=== PATIENT | male | born 1945 | race Caucasian/White ===

== ENCOUNTER 2016-09-21 06:36 | Inpatient (IN) | payer OTHER ==
[2016-09-20 13:19] LABS: BASO% 0.4 % (0.0-0.8); EOS# 0.18 X1000 (0.0-0.7); EOS% 3.2 % (0.0-10.0); HEMATOCRIT 38.9 % (42.0-52.0); LYMPH# 1.97 X1000 (1.2-3.4); LYMPH% 34.9 % (20.5-51.1); MANUAL DIFF NEEDED? NO; MCH 31.9 PG (27-31); MCHC 33.4 g/dL (33-37); MCV 95.3 FL (81-99); MONO# 0.39 X1000 (0.11-0.59); MONO% 6.9 % (1.7-9.3); MPV 10.7 FL (7.4-10.4); NEUT% 54.6 % (42.2-75.2); PLT 162 X1000 (130-400); RBC 4.08 XMIL (4.7-6.1)
[2016-09-20 14:13] LABS: AGAP 9; ALBUMIN 4.1 g/dL (3.5-5.0); ALKALINE PHOSPHATASE 50 U/L (32-122); BUN 17 mg/dL (8-22); CALCIUM 9.3 mg/dL (8.8-10.2); CHLORIDE 100 mmol/L (98-107); COSMO 276; GOT 19 U/L (10-34); GPT 16 U/L (10-44); POTASSIUM 4.6 mmol/L (3.5-5.1); SODIUM 137 mmol/L (136-145); TCO2 28 mmol/L (25-35); TOTAL BILIRUBIN 0.84 mg/dL (0.20-1.00); TOTAL PROTEIN 6.5 g/dL (6.3-8.3)
[2016-09-20 16:04] LABS: INR 1.01; PROTIME 10.7 Seconds (9.2-11.7); PTT 26.1 Seconds (22.0-36.0)
[2016-09-21] MEDS ORDERED: NS 1,000 ML ONE (06:54)
--- NOTE | 2016-09-21 07:11 | EKG Report ---
Test Performed on : 09/21/2016 06:44:15 AM Test Reason : ML Blood Pressure : / mmHG Vent. Rate : 057 BPM Atrial Rate : 057 BPM P-R Int : 256 ms QRS Dur : 100 ms QT Int : 432 ms P-R-T Axes : 051 023 013 degrees QTc Int : 420 ms Sinus bradycardia. with 1st degree AV block. Low voltage QRS Borderline ECG When compared with ECG of 04-SEP-2016 16:15, Criteria for Septal infarct are no longer present Confirmed by Dwight Wilson MD ([id number]) on 09/22/2016 10:18:14 PM
[2016-09-21] MEDS ORDERED: XYLOCAINE 4% TOPICAL SOLUTION ONE (08:50)
[2016-09-21] MEDS ORDERED: DEMEROL ONE (08:54)
[2016-09-21] MEDS ORDERED: VERSED ONE (08:54)
--- NOTE | 2016-09-21 11:02 | Transesophageal Echocardiogram ---
DATE: 09/21/2016 PROCEDURE: Transesophageal echocardiogram. 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 The patient has had previous [address] Leonid Epic porcine valve in the mitral position done on 04/10/2015. He was recently diagnosed with a stroke on 09/04/2016. The benefits, risks, and complications of the procedure were explained and he understood and requested to proceed. DESCRIPTION: The patient came into the cardiac lab rep. He received Versed and Demerol; 2 mL of Versed and 50 mL of Demerol were given in divided doses until adequate sedation was accomplished. The throat was anesthetized with HurriCaine and viscus lidocaine. Multiple views of the cardiac structure were obtained. SUMMARY OF FINDINGS: 1. The left ventricle is normal in size and function. 2. The left atrium is slightly prominent. 3. The left atrial appendage is well visualized and free of thrombus. 4. Interatrial septum is intact. 5. The right atrium is unremarkable. 6. Agitated saline was injected and there was no evidence of a shunt. 7. The tricuspid valve is normal. Color flow mapping indicates very mild regurgitation. 8. The pulmonic valve is normal. Color flow mapping indicates very mild regurgitation. 9. The right ventricle is normal in size and function. 10.The aortic valve has three cusps and they open normally. Color flow mapping is unremarkable. 11.The aortic root is not dilated. 12.The mitral valve is a prosthetic valve. It shows a large mobile clot/ vegetation? 2.1x0.8 cm in greatest dimensions ,attached to the most lateral of the cusps of this prosthetic valve. This vegetation is prolapsing back and forth from the left atrium into the cavity of the left ventricle. It appears to be well attached. It has one large element club-like and then a smaller one like a rabbit ear with an extra branch adjacent to it. 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 13.The descending thoracic aorta shows a mild degree of diffuse calcific plaque. SUMMARY: In summary, this study shows: 1. The presence of a large mobile vegetation/clot attached to the lateral cusp of the prosthetic mitral valve and also attached in part to the mitral valve annulus. There is no evidence of significant mitral stenosis and no regurgitation by Doppler interrogation. 2. Unremarkable aortic, pulmonic, and tricuspid valves. 3. Normal left ventricular systolic function. 4. No evidence of left atrial appendage thrombus. RECOMMENDATION: We will obtain blood cultures, sedimentation rate, and C- reactive protein. We will consult Infectious Disease if these studies are positive. Further intervention will be provided. Thank you for the opportunity to participate in this patient's evaluation. MARIE
[2016-09-21] MEDS ORDERED: HEPARIN 25,000 UNITS/D5W 250 ML IV SCH (13:30)
[2016-09-21] MEDS ORDERED: COUMADIN PO ONE (13:32)
[2016-09-21] MEDS ORDERED: HEPARIN IV ONE (13:34)
--- NOTE | 2016-09-21 18:10 | HISTORY AND PHYSICAL ---
CHIEF COMPLAINT: Weakness, dysphasia. HISTORY: Mr. Mendoza is 71 years of age. He presented to my office on September 14, with complaints of having suffered a recent stroke. He was seen by the hospitalist service on September 04, they did a CT of the head that showed no significant abnormalities. MRI of the brain done on September 05, showed small infarctions in the left insula and parietal lobe. The patient was discharged home and they instructed him to make an appointment to see me at the office. At the time of the evaluation he reported having some weakness of the right arm and leg but that had improved. He denied having any chest pain or shortness of breath. At that time we decided to get him started on warfarin and to set up and elective transesophageal echocardiogram because of suspicion that he could have suffered an embolic stroke. The patient therefore, was brought to the hospital today for the specific purposes of performing a transesophageal echocardiogram which revealed the presence of a mobile thrombus attached to the atrial side of a prosthetic St. Leonid porcine valve. I have decided to admit the patient to the hospital for optimization of anticoagulation due to high risk of embolic stroke. His INR is not therapeutic. The patient denies having swelling, palpitations, syncope, or chest pain at this time. PAST MEDICAL HISTORY: Positive for paroxysmal atrial fibrillation. He does have history of coronary artery disease, hypertension, hyperlipidemia. He has had dizziness in the past. 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 At the same time he underwent coronary bypass surgery with bypasses to the LAD and the right coronary artery. The patient had an uneventful postoperative course. He has no other major significant additional history. HOME MEDICATIONS: At this time include: 1. Warfarin. 2. Simvastatin 40 mg at bedtime. 3. Omeprazole 20 mg daily. 4. Atenolol 25 mg daily. 5. Aspirin 325 daily. ALLERGIES: Erythromycin. SOCIAL HISTORY: He is . He is retired. He is not a smoker, not a drinker. FAMILY HISTORY: Noncontributory. REVIEW OF SYSTEMS: Aside from what I have reported is noncontributory. PHYSICAL EXAMINATION: VITAL SIGNS: Blood pressure 115/70. Temperature 97 degrees. Pulse 68. Respirations 15. GENERAL: He is awake, alert, oriented, and in no distress. HEENT: Unremarkable. CHEST: Clear to auscultation and percussion. HEART: Sounds regular and rhythmic. No gallop or murmur. ABDOMEN: Nontender, soft. No masses or hepatomegaly. EXTREMITIES: Show good pulses. No peripheral edema. NEUROLOGIC: Moves 4 extremities. He has no other focal deficits. EKG showed sinus bradycardia with first-degree AV block. IMPRESSION: 1. Patient who suffered a stroke on September 04, with dysphasia and weakness of the right side of the body. MRI of the brain suggested that it was embolic in nature. 2. 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 3. Status post mitral valve replacement. 4. Status post coronary bypass surgery. 5. History of paroxysmal atrial fibrillation. RECOMMENDATION: At this point in time, we will recommend to put the patient on machine long goods helper anticoagulation with heparin and Coumadin. We are going to admit him to the hospital ,start IV Heparin and uptitrate warfarin until his INR is therapeutic in the range of 2.5-3. We will contact the surgical service of [facility] for additional advice or input. At this time, the patient appears to be hemodynamically stable. He is aware of the findings and the potential for catastrophic embolization. is also well aware of it. We have requested blood cultures, C-reactive protein, and sedimentation rate. So far the sedimentation rate and the C-reactive protein are normal indicating that the patient probably does not have endocarditis as a reason for this clot. MTDD
[2016-09-21] MEDS ORDERED: ZOCOR PO SCH (21:00)
[2016-09-21] MEDS ORDERED: PRILOSEC PO SCH (21:00)
[2016-09-21] MEDS: PRILOSEC PO SCH (21:11)
[2016-09-21] MEDS: ZOCOR PO SCH (21:11)
[2016-09-21] MEDS: HEPARIN 25,000 UNITS/D5W 250 ML IV SCH (21:36)
[2016-09-22] MEDS ORDERED: HEPARIN ONE (01:02)
[2016-09-22] MEDS ORDERED: HEPARIN IV ONE (01:09)
[2016-09-22 05:37] LABS: MANUAL DIFF NEEDED? NO
[2016-09-22 05:46] LABS: BASO% 0.4 % (0.0-0.8); EOS# 0.18 X1000 (0.0-0.7); EOS% 3.3 % (0.0-10.0); HEMATOCRIT 36.8 % (42.0-52.0); HEMOGLOBIN 12.5 g/dL (14.0-18.0); LYMPH# 2.15 X1000 (1.2-3.4); LYMPH% 39.4 % (20.5-51.1); MCH 32.2 PG (27-31); MCV 94.8 FL (81-99); MONO# 0.42 X1000 (0.11-0.59); MONO% 7.7 % (1.7-9.3); MPV 11.7 FL (7.4-10.4); NEUT% 49.2 % (42.2-75.2); PLT 122 X1000 (130-400); RBC 3.88 XMIL (4.7-6.1)
[2016-09-22 06:01] LABS: INR 1.15; PROTIME 12.2 Seconds (9.2-11.7)
[2016-09-22 06:19] LABS: AGAP 10; BUN 18 mg/dL (8-22); CALCIUM 8.4 mg/dL (8.8-10.2); CHLORIDE 103 mmol/L (98-107); COSMO 277; POTASSIUM 3.9 mmol/L (3.5-5.1); SODIUM 138 mmol/L (136-145); TCO2 25 mmol/L (25-35)
--- NOTE | 2016-09-22 06:29 | EKG Report ---
Test Performed on : 09/22/2016 05:49:52 AM Test Reason : dyspnea Blood Pressure : / mmHG Vent. Rate : 070 BPM Atrial Rate : 070 BPM P-R Int : 266 ms QRS Dur : 096 ms QT Int : 406 ms P-R-T Axes : 055 027 018 degrees QTc Int : 438 ms Sinus rhythm. with 1st degree AV block. Low voltage QRS Cannot rule out Anterior infarct , age undetermined Abnormal ECG When compared with ECG of 21-SEP-2016 06:44, (Unconfirmed) Minimal criteria for Anterior infarct are now present Confirmed by Dwight Wilson MD ([id number]) on 09/24/2016 12:30:15 PM
[2016-09-22] MEDS: TENORMIN PO SCH (08:31)
[2016-09-22] MEDS: ASPIRIN PO SCH (08:31)
[2016-09-22] MEDS ORDERED: TENORMIN PO SCH ×2 (09:00)
[2016-09-22] MEDS ORDERED: ASPIRIN EC PO SCH (09:00)
[2016-09-22] MEDS ORDERED: ASPIRIN PO SCH (09:00)
--- NOTE | 2016-09-22 10:22 | PROGRESS NOTE ---
DATE: 09/22/2016 CHIEF COMPLAINT: Abnormal transesophageal echo with thrombus. SUBJECTIVE: Mr. Mendoza feels fine. He has not had an weakness, nausea, vomiting, headache, etc. He feels just as he normally does. OBJECTIVE: Vital signs: Blood pressure 112/67, temperature 97.9, pulse 69, respirations 18. General: He is awake, alert, oriented, in no distress. HEENT: Unremarkable. Chest: Clear to auscultation and percussion. Cardiac: Heart sounds regular and rhythmic, no gallop or murmur. Abdomen: Nontender, soft, no masses, no hepatomegaly. Extremities: Good pulses, no edema. BLOOD WORK TODAY: White count 5460, hemoglobin 12.5, hematocrit 36.8. Platelet count is 122,000. Sodium 138, potassium 3.9, BUN 18, creatinine 1.0. His pro time INR today is 12.2 with 1.15. PTT is 30. IMPRESSION: 1. Patient with history of previous mitral valve replacement with a bioprosthetic valve which has developed a thrombus. 2. Coronary heart disease status post bypass. 3. Recent stroke. RECOMMENDATIONS: We will continue doing the daily dosing of warfarin and keep him on heparin until his INR becomes therapeutic, close to 3,0, so we can send him home on established regimen of warfarin. The patient at this time seems to be clinically stable. We will continue to monitor him and follow him. Thank you for the opportunity to participate in his evaluation.
[2016-09-22] MEDS: HEPARIN 25,000 UNITS/D5W 250 ML IV SCH (14:51)
[2016-09-22] MEDS: PRILOSEC PO SCH (20:20)
[2016-09-22] MEDS: ZOCOR PO SCH (20:20)
[2016-09-22] MEDS: COUMADIN PO SCH (20:21)
[2016-09-23] MEDS: HEPARIN 25,000 UNITS/D5W 250 ML IV SCH (02:42)
[2016-09-23 04:33] LABS: HEMATOCRIT 37.1 % (42.0-52.0); HEMOGLOBIN 12.5 g/dL (14.0-18.0); MCH 32.1 PG (27-31); MCHC 33.7 g/dL (33-37); MCV 95.4 FL (81-99); MPV 12.6 FL (7.4-10.4); RBC 3.89 XMIL (4.7-6.1)
[2016-09-23 04:51] LABS: INR 1.21; PROTIME 12.9 Seconds (9.2-11.7)
[2016-09-23] MEDS ORDERED: HEPARIN IV ONE (05:56)
[2016-09-23] MEDS ORDERED: HEPARIN 25,000 UNITS/D5W 250 ML IV SCH (06:03)
[2016-09-23] MEDS: TENORMIN PO SCH (09:09)
[2016-09-23] MEDS: ARIXTRA SUBQ SCH (09:09)
[2016-09-23] MEDS: ASPIRIN PO SCH (09:09)
--- NOTE | 2016-09-23 09:28 | PROGRESS NOTE ---
DATE: 09/23/2016 CHIEF COMPLAINT: Recent stroke, abnormal transesophageal echocardiogram. SUBJECTIVE: Mr. Mendoza has not experienced any change in his symptoms. He is not having any chest pain, shortness of breath or palpitations. OBJECTIVE: His blood pressure right now is 115/67, temperature 97.9, pulse 60, respirations 16. He is awake, alert and oriented, in no distress. HEENT is unremarkable. Chest is clear to auscultation and percussion. Heart sounds are regular and rhythmic. I do not hear any definite gallop or murmur. His abdomen is soft, nontender. No masses. No hepatomegaly. Extremities showed good pulses. No edema. Neurologic: He moves all 4 extremities, has no obvious deficit. DIAGNOSTIC DATA: His ProTime and INR are 12.9 and 1.21. PTT was 43.5. His platelet count has dropped from admission which was 162,000 to 89,000. Hemoglobin is staying the same. IMPRESSION: 1. The patient presented with a recent stroke, and a transesophageal echocardiogram reveals a mobile thrombus attached to the prosthetic mitral valve. 2. History of coronary artery disease, status post bypass. 3. History of paroxysmal atrial fibrillation. 4. 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 RECOMMENDATIONS: At this point in time, we will discontinue heparin. I have contacted Dr. Anthony Gustafson from [facility] to assist with heparin-induced thrombocytopenia. He has suggested to start the patient on Arixtra 10 mg subcutaneously daily. We will follow his recommendations, and we will continue to monitor the patient in the hospital. We will continue Warfarin at present doses until his INR reaches 3.0, and then we may probably send him home on a steady dose of that medication. Further advice will be forthcoming. [facility]
[2016-09-23 13:22] LABS: IRON SATURATION 39 %; TIBC 253 ug/dL; TOTAL IRON 98 ug/dL (53-167); UNBOUND IRON 155 ug/dL (112-346)
[2016-09-23] MEDS: COUMADIN PO SCH (20:52)
[2016-09-23] MEDS: PRILOSEC PO SCH (20:59)
[2016-09-23] MEDS: ZOCOR PO SCH (20:59)
[2016-09-24 05:42] LABS: INR 1.36; PROTIME 14.5 Seconds (9.2-11.7)
[2016-09-24 07:43] LABS: HEMATOCRIT 37.9 % (42.0-52.0); HEMOGLOBIN 12.8 g/dL (14.0-18.0); MCH 32.3 PG (27-31); MCHC 33.8 g/dL (33-37); MCV 95.7 FL (81-99); MPV 13.2 FL (7.4-10.4); RBC 3.96 XMIL (4.7-6.1)
[2016-09-24] MEDS: ARIXTRA SUBQ SCH (09:25)
[2016-09-24] MEDS: TENORMIN PO SCH (09:25)
[2016-09-24] MEDS: ASPIRIN PO SCH (09:25)
[2016-09-24] MEDS: PRILOSEC PO SCH (20:14)
[2016-09-24] MEDS: COUMADIN PO SCH (20:14)
[2016-09-24] MEDS: ZOCOR PO SCH (20:14)
[2016-09-25 05:46] LABS: INR 1.74; PROTIME 18.5 Seconds (9.2-11.7)
[2016-09-25] MEDS: ARIXTRA SUBQ SCH (09:23)
[2016-09-25] MEDS: TENORMIN PO SCH (09:23)
[2016-09-25] MEDS: ASPIRIN PO SCH (09:23)
[2016-09-25 12:04] LABS: MANUAL DIFF NEEDED? NO
[2016-09-25 12:16] LABS: BASO% 0.4 % (0.0-0.8); EOS# 0.12 X1000 (0.0-0.7); EOS% 2.5 % (0.0-10.0); HEMATOCRIT 39.2 % (42.0-52.0); HEMOGLOBIN 13.3 g/dL (14.0-18.0); LYMPH# 1.67 X1000 (1.2-3.4); LYMPH% 34.3 % (20.5-51.1); MCH 32.2 PG (27-31); MCHC 33.9 g/dL (33-37); MCV 94.9 FL (81-99); MONO# 0.33 X1000 (0.11-0.59); MONO% 6.8 % (1.7-9.3); MPV 10.7 FL (7.4-10.4); PLT 153 X1000 (130-400); RBC 4.13 XMIL (4.7-6.1)
[2016-09-25] MEDS: PRILOSEC PO SCH (20:13)
[2016-09-25] MEDS: COUMADIN PO SCH (20:13)
[2016-09-25] MEDS: ZOCOR PO SCH (20:13)
[2016-09-26 05:23] LABS: MANUAL DIFF NEEDED? NO
[2016-09-26 05:30] LABS: BASO% 0.5 % (0.0-0.8); EOS% 3.2 % (0.0-10.0); HEMATOCRIT 39.2 % (42.0-52.0); HEMOGLOBIN 13.2 g/dL (14.0-18.0); LYMPH# 2.52 X1000 (1.2-3.4); LYMPH% 40.4 % (20.5-51.1); MCH 31.7 PG (27-31); MCHC 33.7 g/dL (33-37); MCV 94.2 FL (81-99); MONO# 0.44 X1000 (0.11-0.59); MONO% 7.1 % (1.7-9.3); MPV 11.6 FL (7.4-10.4); NEUT% 48.8 % (42.2-75.2); PLT 152 X1000 (130-400); RBC 4.16 XMIL (4.7-6.1)
[2016-09-26 05:49] LABS: AGAP 11; BUN 19 mg/dL (8-22); CALCIUM 8.6 mg/dL (8.8-10.2); CHLORIDE 103 mmol/L (98-107); COSMO 281; POTASSIUM 4.3 mmol/L (3.5-5.1); SODIUM 140 mmol/L (136-145); TCO2 26 mmol/L (25-35)
[2016-09-26 08:16] LABS: INR 2.19; PROTIME 23.4 Seconds (9.2-11.7)
[2016-09-26] MEDS: TENORMIN PO SCH (09:23)
[2016-09-26] MEDS: ASPIRIN PO SCH (09:23)
[2016-09-26] MEDS: ARIXTRA SUBQ SCH (09:23)
--- NOTE | 2016-09-26 10:26 | PROGRESS NOTE ---
DATE: 09/26/2016 CHIEF COMPLAINT: Patient with a thrombus in the mitral valve. SUBJECTIVE: Mr. Mendoza has not had any recent change in complaints. He is still feeling exactly the same as he did on admission. He denies having any palpitations, dizziness, chest pain, or shortness of breath. He has been up and about in his room. OBJECTIVE: Vital signs: Blood pressure today is 114/37. Temperature is 98.2. Pulse is 69 and it jumps up to 90 when he gets up and about. Respirations are 14. General: He is awake, alert, oriented, and in no distress. HEENT: Unremarkable. Respiratory: The chest is clear to auscultation and percussion. Cardiovascular: Heart sounds are regular and rhythmic. I do not hear a gallop or murmur. Gastrointestinal: The abdomen is nontender and soft. No mass. No hepatomegaly. Extremities: The extremities show +1 edema. Neurological: He moves all extremities. Gait is normal. Cranial nerves are normal. LABORATORY DATA: Blood work: Sodium is 140, potassium 4.3, BUN 19, and creatinine 1. His ProTime is 23.4 and INR is 2.19. His platelet count today is 152,000. It has gone back up. Hemoglobin is 13.2. IMPRESSION AND PLAN: 1. Patient who has thrombus at the level of the mitral valve. This is not a vegetation based on negative blood cultures. 2. History of coronary artery disease status-post bypass. 3. History of paroxysmal atrial fibrillation. 4. Heparin-induced thrombocytopenia. RECOMMENDATION: At this point in time we will continue with the present doses of warfarin. He is really getting very close to the point where we may be able to discontinue Arixtra. At this point in time we will probably keep him 1 or 2 more days until we get the INR very close to 3. After that he will be discharged home. We will follow him at the office and we will probably make a referral to the cardiovascular surgeons for a second opinion upon discharge.
[2016-09-26] MEDS: COUMADIN PO SCH (21:25)
[2016-09-26] MEDS: PRILOSEC PO SCH (21:25)
[2016-09-26] MEDS: ZOCOR PO SCH (21:25)
[2016-09-27 05:23] LABS: MANUAL DIFF NEEDED? NO
[2016-09-27 05:27] LABS: BASO% 0.3 % (0.0-0.8); EOS# 0.24 X1000 (0.0-0.7); EOS% 3.8 % (0.0-10.0); HEMATOCRIT 38.1 % (42.0-52.0); HEMOGLOBIN 13.1 g/dL (14.0-18.0); LYMPH# 2.27 X1000 (1.2-3.4); LYMPH% 36.1 % (20.5-51.1); MCH 32.4 PG (27-31); MCHC 34.4 g/dL (33-37); MCV 94.3 FL (81-99); MONO# 0.42 X1000 (0.11-0.59); MONO% 6.7 % (1.7-9.3); MPV 11.7 FL (7.4-10.4); NEUT% 53.1 % (42.2-75.2); PLT 139 X1000 (130-400); RBC 4.04 XMIL (4.7-6.1)
[2016-09-27 05:40] LABS: INR 2.43
--- NOTE | 2016-09-27 08:18 | PROGRESS NOTE ---
DATE: 09/27/2016 CHIEF COMPLAINT: Abnormal echocardiogram. SUBJECTIVE: Mr. Mendoza is feeling fine. He denies having any chest pain, shortness of breath, palpitations. OBJECTIVE: Vital signs: Blood pressure is 103/56, temperature 97.4, pulse 60, respirations 18. General: He is awake, alert and oriented, in no distress. HEENT: Unremarkable. Chest: Clear to auscultation and percussion. Cardiac: Heart sounds regular and rhythmic. No gallop or murmur is noted. Abdomen: Nontender. No masses. No hepatomegaly. Extremities: Show good pulses. No edema. Neurologic: Moves all four extremities. LABORATORY DATA: Pro-time is 26 seconds. INR is 2.43. His platelet count is up to 139,000. Hemoglobin is 13.1. White count is 3,290. IMPRESSION: 1. Patient who presented with recent stroke which was secondary to embolic phenomenon. Transesophageal echocardiogram revealed a large 2 cm thrombus like structure attached to the prosthetic mitral valve. 2. History of coronary heart disease status post bypass. 3. Hospitalization paroxysmal atrial fibrillation. RECOMMENDATIONS: At this point in time, we will continue present course of management with anticoagulation as we are doing. We will continue Arixtra and warfarin. We hope to get very close to an INR of 3.0, and at that point we might be able to discharge him safely. He will follow up electively with the cardiovascular surgeons for additional opinion. We will arrange for an outpatient followup transesophageal echocardiogram in 6-8 weeks from now. Thank you again for the opportunity to participated in his evaluation. Best regards,
[2016-09-27] MEDS: ASPIRIN PO SCH (08:36)
[2016-09-27] MEDS: TENORMIN PO SCH (08:36)
[2016-09-27] MEDS: ARIXTRA SUBQ SCH (08:36)
[2016-09-27] MEDS: PRILOSEC PO SCH (20:00)
[2016-09-27] MEDS: ZOCOR PO SCH (20:00)
[2016-09-27] MEDS: COUMADIN PO SCH (20:00)
[2016-09-28 05:24] LABS: MANUAL DIFF NEEDED? NO
[2016-09-28 05:29] LABS: BASO% 0.3 % (0.0-0.8); EOS% 3.4 % (0.0-10.0); HEMATOCRIT 38.4 % (42.0-52.0); HEMOGLOBIN 12.9 g/dL (14.0-18.0); LYMPH# 2.22 X1000 (1.2-3.4); LYMPH% 37.9 % (20.5-51.1); MCH 31.6 PG (27-31); MCHC 33.6 g/dL (33-37); MCV 94.1 FL (81-99); MONO# 0.48 X1000 (0.11-0.59); MONO% 8.2 % (1.7-9.3); MPV 11.9 FL (7.4-10.4); NEUT% 50.2 % (42.2-75.2); PLT 142 X1000 (130-400); RBC 4.08 XMIL (4.7-6.1)
[2016-09-28 06:14] LABS: INR 2.84; PROTIME 30.4 Seconds (9.2-11.7)
[2016-09-28 08:38] VITALS: BP 120/75
[2016-09-28] MEDS: TENORMIN PO SCH (09:27)
[2016-09-28] MEDS: ASPIRIN PO SCH (09:27)
[2016-09-28] MEDS: ARIXTRA SUBQ SCH (09:29)
--- NOTE | 2016-09-28 11:47 | DISCHARGE SUMMARY ---
ADMISSION DATE: 09/21/2016 DISCHARGE DATE: CHIEF COMPLAINT: Weakness, right side of the body, finding of a stroke and finding of a clot in the mitral valve. HISTORY: Mr. Mendoza is a 71-year-old male. He had presented to the hospital on 09/06 with weakness. At that time, they diagnosed an embolic stroke and they recommended followup with me. We saw him at the office. We initiated Coumadin and recommended elective transesophageal echocardiogram. That study was done on 09/21, and revealed the presence of a mobile thrombus, attached to the prosthetic mitral valve. Because of the large size of the thrombus, we felt that he really needed to be admitted to the hospital for optimization of anticoagulation, rule out endocarditis, and then decide on further therapy. The patient was therefore admitted to the hospital. Please refer to the ML report. He was initiated on IV heparin and Coumadin. Initially, his platelet count dropped. He started out with 162,000 platelets and then they came down to 89,000. At that point, I was afraid that he was developing heparin- induced thrombocytopenia; therefore, I discontinued heparin and switched him over to Arixtra and continued Coumadin. Consultation with Hematology was carried out. They recommended to continue Arixtra for a few days until adequate anticoagulation was accomplished with Coumadin. All of the 4 blood cultures that were drawn came back negative. His inflammatory markers, C- reactive protein and sedimentation rate were negative, indicating that he does not have active endocarditis. By September 28, his INR had risen to 2.84, pro time was 30.4. The patient was asymptomatic. PHYSICAL EXAMINATION: Physical examination was really normal. Vital Signs: His blood pressure was 107/73, temperature 97.5, pulse 54, respirations 12. He was alert, oriented , in no distress. HEENT: Unremarkable. Chest: Clear to auscultation and percussion. Cardiac: Exam revealed regular rate and rhythm. No gallop or murmur. Abdomen: Nontender, soft, no masses or hepatosplenomegaly. Extremities: Good pulses, no edema. Neurologic: He was ambulating. He had good balance. Cranial nerves were normal. He had good strength in the legs and arms. His platelet count on 09/28, was 142,000. The patient was deemed to be stable for discharge. INSTRUCTIONS: 1. He will start taking warfarin 6 mg every night, beginning 09/28, continuing on 09/29, and will have a pro time on 09/30, and further instructions will be given thereafter. 2. He will continue all other preadmission medications, including atenolol, omeprazole, and low- dose aspirin. 3. He will continue also simvastatin. 4. He will follow with me at the office in about a week. Further instruction will come thereafter. FINAL DIAGNOSES: 1. Recent embolic stroke. 2. Mobile thrombus, attached to a prosthetic mitral valve. 3. History of coronary artery disease, status post coronary bypass surgery. 4. History of paroxysmal atrial fibrillation and hyperlipidemia. PROCEDURES PERFORMED ON THIS ADMISSION: Only Hematology consultation. Transesophageal echocardiogram was done on an outpatient basis and thereafter he was admitted to the hospital. The patient is leaving the hospital in stable condition. Prognosis is probably fair. MARIE
--- NOTE | 2016-09-29 11:55 | CONSULTATION ---
DATE OF CONSULTATION: 09/23/2016 We appreciate this consult. CHIEF COMPLAINT: Heparin induced thrombocytopenia. HISTORY OF PRESENT ILLNESS: Mr. Mendoza is a 71-year-old male who recently suffered a left parietal and left insula stroke. MRI of the brain on September 05 revealed the infarcts. The patient was admitted to [facility] for transesophageal echocardiogram which revealed a mobile thrombus attached to the atrial side of the prosthetic a St. Leonid porcine valve. The patient was admitted secondary to high risk of further embolic stroke. The patient was begun on IV heparin but had significant thrombocytopenia. We are consulted for the same. Platelet count is currently 89. The patient denies any bleeding at this time. PAST MEDICAL HISTORY: 1. Paroxysmal atrial fibrillation. 2. Coronary artery disease. 3. Hypertension. 4. Hyperlipidemia. 5. Left parietal left insular stroke. PAST SURGICAL HISTORY: 1. Mitral valve replacement. 2. Coronary artery bypass grafting. FAMILY HISTORY: Negative for any hematologic or oncologic disease. SOCIAL HISTORY: The patient is and retired. He does not use tobacco, alcohol or illicit drugs. MEDICATIONS ON ADMISSION: 1. Coumadin. 2. Simvastatin. 3. Omeprazole. 4. Atenolol. 5. Aspirin. ALLERGIES: Erythromycin. REVIEW OF SYSTEMS: Complete review of systems was obtained and is negative except as mentioned in HPI. PHYSICAL EXAMINATION: General: Mr. Mendoza is a 71-year-old, male, lying supine in bed. Currently in no apparent distress. Vital Signs: Temperature 97 degrees ,blood pressure 115/70, heart rate 68, respirations 15, O2 saturation 98% on room air. HEENT: Normocephalic, atraumatic. Mucous membranes pink and moist. Sclerae is anicteric. Extraocular movements intact. Neck: Supple. Lungs: Clear to auscultation bilaterally. Chest expansion is equal bilaterally. Cardiovascular: S1, S2 is heard without murmur, rub or gallop. Abdomen: Soft, nondistended, nontender. Bowel sounds are positive in all quadrants. No rebound or guarding is noted. Extremities: Without clubbing, cyanosis, or edema. Dermatologic: No rashes, bruises or lesions. Neurologic: The patient has no focal deficits. The patient is awake, alert, and oriented x3. LABORATORY DATA: Sodium 138, potassium 3.9, chloride 105, CO2 25, BUN 18, creatinine 1.0, glucose is 87, hemoglobin 12.5, hematocrit 37.1, white blood cell count is 5.64, platelets 89,000. INR is 1.21. Blood cultures reveal no growth after 48 hours. EKG reveals sinus rhythm with 1st degree AV block. ASSESSMENT/PLAN: 1. Heparin-induced thrombocytopenia. Heparin has been discontinued at this time. The patient is now on Coumadin with an INR of 1.21. Additionally the patient has been started on Arixtra. His platelet count is currently 89. We will check an iron, B12 level, folate, SPEP, direct platelet antibody, heparin T4 antibody, ELEAZAR. We will follow along with you and make further recommendations pending outcomes. 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 3. Coronary artery disease status post coronary artery bypass grafting. Stable at this time. 4. Mitral valve replacement with a thrombus measuring 2.1 cm x 0.8 cm. Stable currently on Arixtra and Coumadin. 5. Stroke in the left parietal and left insular regions secondary to #2. The above reflects the history, exam, assessment and plan of Dr. Gustafson. Dictated by JOSE ROBERTO Doran for Anthony Gustafson MD
== END 2016-09-28 11:30 | disposition home or self-care (01) | DRG 315 ==
LOC: OPS 06:36 → 3S 15:06 → OBSVTOIN 15:06 → 3S 15:12
PROVIDERS: ADMIT Internal Medicine Cardiovascular Disease; ATTEND Internal Medicine Cardiovascular Disease
PROC: B24BZZ4 Ultrasonography of Heart with Aorta, Transesophageal (ICD-10-PCS; principal; 2016-09-21)
DX: T82.867A Thrombosis due to cardiac prosthetic devices, implants and grafts, initial encounter (principal); I69.351 Hemiplegia and hemiparesis following cerebral infarction affecting right dominant side; I51.3 Intracardiac thrombosis, not elsewhere classified; I48.0 Paroxysmal atrial fibrillation; D75.82 Heparin induced thrombocytopenia (HIT); I69.321 Dysphasia following cerebral infarction; I25.10 Atherosclerotic heart disease of native coronary artery without angina pectoris; I10 Essential (primary) hypertension; E78.5 Hyperlipidemia, unspecified; Z79.899 Other long term (current) drug therapy; Z79.82 Long term (current) use of aspirin; Z95.1 Presence of aortocoronary bypass graft; T45.515A Adverse effect of anticoagulants, initial encounter
CPT/HCPCS: 80048; 80053; 82607; 82746; 83540; 83550; 84155; 84165; 85025; 85027; 85610; 85651; 85730; 86022; 86023; 86140; 87040; 93005; 93010; 93312; J1644; J1652; J2175; J2250; J7030